=== PATIENT | male | born 1980 | race Caucasian/White ===

== ENCOUNTER 2023-08-13 00:35 | Emergency (ER) | payer OTHER, SELFPAY ==
[2023-08-13 00:35] VITALS: BMI 28.6
[2023-08-13 00:39] VITALS: BP 125/93
[2023-08-13 00:41] VITALS: BP 125/93
--- NOTE | 2023-08-13 01:46 | ED.GENMED ---
History of Present Illness
General
Chief Complaint: Chest Pain
Source: patient and ambulance crew
Time Seen by Provider: 08/13/23 00:37
Travel History
Have you had any contact with someone who has COVID-19?: No
Do you have any symptoms of coronavirus? Fever > 100 degrees, chills, cough, shortness of breath, sore throat, loss of taste or smell, muscle aches, or headache?: No
History of Present Illness
History of Present Illness:
42-year-old male who presents [place] Patient states he was hiking and fell asleep in the car. He states he has a PCP appointment tomorrow at 4 PM. He has been having difficulties with his job.
Patient states he has been a little bit depressed due to the of his grandmother. Occasionally he does have thoughts of suicide but nothing active now. The patient had reported a little bit of chest pain so EMS brought him for evaluation.
The patient currently denies chest pain. He states he had a brief twinge in the left lateral portion of his chest. It has resolved. No shortness of breath. No leg swelling
Past History
Past History
ED Past Medical History: Asthma, GERD, Psychiatric (depression, alcohol abuse, Anxiety) and Other (Bronchitis, MRSA of the knee's, Concussion, Hernia)
ED Past Surgical History: None
Patient has exhibited threatening behavior?: No (Patient was found to have a knife on his person. He did not use it or threatened to use it)
Social History
Tobacco: Smoker
Alcohol: Occasional
Drug: None
Personal:
Living: homeless
Employment: Employed
Phy Exam
Physical Exam
Physical Exam:
CONSTITUTIONAL Patient alert and oriented to person, place and time. Well-appearing. Vital signs reviewed.
HEAD atraumatic, normocephalic.
EYES eyelids normal to inspection, Extraocular muscles intact, Conjunctiva normal, Sclera normal.
NECK normal range of motion, Trachea midline, no jugular venous distention.
RESPIRATORY CHEST No respiratory distress noted, Chest expansion equal, Bilateral breath sounds clear.
CARDIOVASCULAR regular rate and rhythm, Heart sounds normal.
ABDOMEN abdomen nontender, Bowel sounds normal. No distention.
BACK normal inspection, no obvious deformities
UPPER EXTREMITY range of motion normal, Motor strength normal, no cyanosis, no edema.
LOWER EXTREMITY range of motion normal, Motor strength normal, no cyanosis, no edema.
NEURO Speech normal, No focal motor deficits, Arnaldo coma scale 15, Memory normal, Cranial Nerves intact to screening exam.
SKIN skin warm, dry, and normal in color.
PSYCHIATRIC patient oriented to person place and time, Normal affect.
Scores
Heart Score for Chest Pain Patients
STEMI patient?: Not applicable
Course
Orders/Labs/Results
Orders:
Orders
08/13/23 00:41
Electrocardiogram (*1) Urgent
Reason for Study: Chest Pain
EKG- Treatment ONCE
08/13/23 00:58
Crisis Consult Urgent
Reason for Consult: depression
08/13/23 00:41
08/13/23 00:41
Vital Signs
Initial and Last Documented VS:
Initial Vital Signs
Temp Pulse Resp BP Pulse Ox
97.3 F 83 22 125/93 99
08/13/23 00:39 08/13/23 00:39 08/13/23 00:39 08/13/23 00:39 08/13/23 00:39
Last Documented Vital Signs
Temp Pulse Resp BP Pulse Ox
97.3 F 85 16 125/93 98
08/13/23 00:39 08/13/23 01:30 08/13/23 01:30 08/13/23 00:41 08/13/23 00:45
MDM/Problems Addressed
MDM/Problems Addressed:
Major depression
*Pulse Oximetry
Patient hypoxic: no
*EKG
Interpreted by ED Provider?: Yes
Interpretation: normal
Rate: normal
Rhythm: sinus
[place]: normal axis
QRS Pattern: normal QRS
Ischemia: no ischemia
*Client Representative Interpretation
Rate: normal
Interpretation: normal
Rhythm: sinus
*Critical Care Note
Total Time (30-74mins, 75-104mins- exclusive of procedures): Not Applicable
Data Reviewed
Source: patient and family
Further Testing Considered But Not Given:
Consider checking troponin but patient reports she had 1 to 2 seconds of localized sharp pain that is atypical for ACS. EKG normal. No significant ACS risk factors
Patient Management
Escalation/DeEscalation of care consider admission/obs:
Patient peers well. Seen by crisis. Patient is not actively suicidal. He has a PCP appointment tomorrow that he would like to get to. As an outpatient psychiatrist as well as therapist. He feels comfortable returning if any symptoms of suicidal
ideation return or progress.
ED Attending Note
-
Portions of this chart may have been created with voice recognition software.� Occasional wrong word or��sound alike� substitutions may have occurred due to the inherent limitations of voice recognition software.
Discharge Plan
Departure
Patient Disposition: Home (Routine Discharge)
Date of Disposition: 08/13/23
Time of Disposition: 01:50
Patient with high blood pressure during this ER visit?: Yes
Discharge Problem:
Depression
Instructions: BLOOD PRESSURE
Prescriptions:
No Action
No Current Medications
0
Activity Restrictions/Additional Instructions:
Please see your doctor tomorrow as planned. Return immediately for suicidal ideation, chest pain, shortness of breath, weakness of any kind or any other concerns.
Interventions
Interventions:
*Risk Screen - Suicide Last Done: 08/13/23 01:09
*General Assessment Last Done: 08/13/23 00:48
*Neglect/Abuse Screening Last Done: 08/13/23 00:39
ED- Fall Risk Assessment Last Done: 08/13/23 01:14
*ED COVID-19 Vaccine History Last Done: 08/13/23 00:39
ED- Cardiac Assessment Last Done: 08/13/23 01:12
Discharge Date and Time
Print Language: [place]
[2023-08-13 03:00] VITALS: BP 120/87
== END 2023-08-13 03:17 | disposition home or self-care (01) ==
LOC: EMR 00:35
PROVIDERS: EMERGENCY PHYSICIAN Emergency Medicine; FAMILY PHYSICIAN Family Medicine
DX: F32.9 Major depressive disorder, single episode, unspecified (principal); J45.909 Unspecified asthma, uncomplicated; K21.9 Gastro-esophageal reflux disease without esophagitis; F17.200 Nicotine dependence, unspecified, uncomplicated
CPT/HCPCS: 99283; 93005

== ENCOUNTER 2023-10-07 21:34 | Emergency (ER) | payer SELFPAY ==
[2023-10-07 21:36] VITALS: BP 133/68
[2023-10-07 21:53] LABS: % Basophils 0.4 % (0-2); % Eosinophils 2.3 % (0-6); % Immature Granulocytes 0.3 % (0-0.5); Absolute Eosinophils 0.2 10^3/uL (0-0.7); Absolute Lymphocytes 2.7 10^3/uL (1.2-3.4); Absolute Monocytes 0.8 10^3/uL (0.1-0.6); Absolute Neutrophils 5.2 10^3/uL (1.4-6.5); Hematocrit 32.6 % (39.0-52.0); Hemoglobin 11.7 g/dL (13.0-18.0); Mean Corp Hgb Conc. 35.9 g/dL (33.0-37.0); Mean Corpuscular Hgb 31.1 pg (27.0-31.0); Mean Corpuscular Volume 86.7 fL (80.0-94.0); Mean Platelet Volume 11.4 fL (7.4-10.4); Nucleated Red Blood Cells % 0 % (-); Platelet Count 251 10^3/uL (130-400); Red Blood Cell Count 3.76 10^6/uL (4.70-6.10); Red Cell Dist. Width 12.1 % (11.5-14.5)
[2023-10-07 22:14] LABS: ALT (SGPT) 40 U/L (0-50); AST (SGOT) 38 U/L (17-59); Albumin 4.2 g/dl (3.5-5.0); Alkaline Phosphatase 54 U/L (38-126); Blood Urea Nitrogen 9 mg/dl (9-20); Carbon Dioxide 24 mmol/L (22-30); Chloride 106 mmol/L (98-107); Glucose 101 mg/dl (70-99); Potassium 3.5 mmol/L (3.5-5.1); Sodium 139 mmol/L (135-145); Total Bilirubin 0.3 mg/dl (0.2-1.3); Total Protein 6.6 g/dl (6.3-8.2); eGFR > 60.00
[2023-10-07 22:17] VITALS: BMI 29.8
[2023-10-07 22:18] LABS: Troponin I < 0.012 ng/ml
[2023-10-07 22:21] VITALS: BP 112/63
--- NOTE | 2023-10-07 22:38 | ED.GENMED ---
History of Present Illness
<KERVIN Brown - Last Filed: 10/08/23 03:49>
General
Chief Complaint: Chest Pain
Source: patient
Exam Limitations: none
Time Seen by Provider: 10/07/23 22:38
Nursing documentation reviewed up to this point in time: agreed with
History of Present Illness
History of Present Illness:
42 year old male presents for evaluation of chest pain. Pt notes that at approximately 1600 this afternoon he began experiencing chest pain which last for 5 hours per pt. Pain was not worsened by exercise, and was not pleuritic per pt. Pt did not
take any medications for his sx. He has a history of similar symptoms and notes his chest pain occurs regularly. Currently pt denies chest pain but endorses a burning sensation in his throat. He does have a history of GERD for which he takes
omeprazole. Pt denies injury/trauma to his chest, N/V, SOB, changes in bowel habits, palpitations, dizziness, diaphoresis, LAN, and vision changes. No tobacco, ETOH, or illicit drug use reported. No personal or family history of CAD.
Of note, pt exhibited a blunted affect and was hesitant to elaborate on his symptoms during assessment.
Past History
<KERVIN Brown - Last Filed: 10/08/23 03:49>
Past History
ED Past Medical History: Asthma, GERD, Psychiatric (depression, alcohol abuse, Anxiety) and Other (Bronchitis, MRSA of the knee's, Concussion, Hernia)
ED Past Surgical History: None
Patient has exhibited threatening behavior?: No (Patient was found to have a knife on his person. He did not use it or threatened to use it)
Social History
Tobacco: Smoker
Alcohol: Occasional
Drug: None
Personal:
Living: homeless
Employment: Employed
Review of Systems
<KERVIN Brown - Last Filed: 10/08/23 03:49>
Review of Systems
Allergies reviewed?: Yes
Constitutional: Reports no symptoms
EENT: Reports no symptoms
Respiratory: Reports no symptoms
Cardiac: Reports no symptoms
ABD/GI: Reports other (burning sensation in his throat )
: Reports no symptoms
Musculoskeletal: Reports no symptoms
Skin: Reports no symptoms
Neurological: Reports no symptoms
Endocrine: Reports no symptoms
Hematologic/Lymphatic: Reports no symptoms
Psychiatric: Reports no symptoms
Phy Exam
<KERVIN Brown - Last Filed: 10/08/23 03:49>
General Physical Exam
General Presentation: well appearing
General age: appears stated age
General Skin: warm
General Habitus: normal
General Mental: alert
General Hydration: appears well hydrated
Cardiovascular Exam
Cardiovascular Exam: regular rate/rhythm, no edema, no JVD and no murmur
Pulmonary Exam
Pulmonary Exam: lungs clear and no respiratory distress
Psychiatric Exam
Psychiatric Exam: depressed and other (blunted affect)
Scores
<KERVIN Brown - Last Filed: 10/08/23 03:49>
Heart Score for Chest Pain Patients
Heart Score for Chest Pain Patients: 0
Heart Score Risk: 2.5% MACE over next 6 weeks
<Pippa Avelar DO - Last Filed: 10/07/23 23:26>
Heart Score for Chest Pain Patients
STEMI patient?: No
History: Slightly or Non-Suspicious
ECG: Normal
Age: </= 45 years
Risk Factors: No Risk Factors
Troponin: </= Normal Limit
Heart Score for Chest Pain Patients: 0
Heart Score Risk: 2.5% MACE over next 6 weeks
Course
<KERVIN Brown - Last Filed: 10/08/23 03:49>
Orders/Labs/Results
Orders:
Orders
10/07/23 21:38
Electrocardiogram (*1) Urgent
Reason for Study: Chest Pain
EKG- Treatment ONCE
10/07/23 21:46
Complete Blood Count/With Diff Urgent
Comprehensive Metabolic Panel Urgent
Troponin I Urgent
10/07/23 23:14
Pantoprazole [Protonix] 40 mg PO NOW STA
Abnormal Lab Results
10/07/23
21:46
RBC 3.76 L 10^6/uL
(4.70-6.10)
Hgb 11.7 L g/dL
(13.0-18.0)
Hct 32.6 L %
(39.0-52.0)
MCH 31.1 H pg
(27.0-31.0)
MPV 11.4 H fL
(7.4-10.4)
Absolute Monos (auto) 0.8 H 10^3/uL
(0.1-0.6)
Glucose 101 H mg/dl
(70-99)
10/07/23 21:46
10/07/23 21:46
Vital Signs
Initial and Last Documented VS:
Initial Vital Signs
Temp Pulse Resp BP Pulse Ox
98.3 F 91 20 133/68 98
10/07/23 21:36 10/07/23 21:36 10/07/23 21:36 10/07/23 21:36 10/07/23 21:36
Last Documented Vital Signs
Temp Pulse Resp BP Pulse Ox
98.3 F 79 21 100/60 95
10/07/23 21:36 10/07/23 23:15 10/07/23 23:15 10/07/23 23:25 10/07/23 23:15
<Pippa Avelar DO - Last Filed: 10/07/23 23:26>
Orders/Labs/Results
Orders:
Orders
10/07/23 21:38
Electrocardiogram (*1) Urgent
Reason for Study: Chest Pain
EKG- Treatment ONCE
10/07/23 21:46
Complete Blood Count/With Diff Urgent
Comprehensive Metabolic Panel Urgent
Troponin I Urgent
10/07/23 23:14
Pantoprazole [Protonix] 40 mg PO NOW STA
Abnormal Lab Results
10/07/23
21:46
RBC 3.76 L 10^6/uL
(4.70-6.10)
Hgb 11.7 L g/dL
(13.0-18.0)
Hct 32.6 L %
(39.0-52.0)
MCH 31.1 H pg
(27.0-31.0)
MPV 11.4 H fL
(7.4-10.4)
Absolute Monos (auto) 0.8 H 10^3/uL
(0.1-0.6)
Glucose 101 H mg/dl
(70-99)
10/07/23 21:46
10/07/23 21:46
Vital Signs
Initial and Last Documented VS:
Initial Vital Signs
Temp Pulse Resp BP Pulse Ox
98.3 F 91 20 133/68 98
10/07/23 21:36 10/07/23 21:36 10/07/23 21:36 10/07/23 21:36 10/07/23 21:36
Last Documented Vital Signs
Temp Pulse Resp BP Pulse Ox
98.3 F 79 21 100/60 95
10/07/23 21:36 10/07/23 23:15 10/07/23 23:15 10/07/23 23:25 10/07/23 23:15
marta;KERVIN Brown - Last Filed: 10/08/23 03:49>
MDM/Problems Addressed
Differential Diagnosis Includes:
GERD
MDM/Problems Addressed:
Pantoprazole [Protonix] 40 mg PO
<KERVIN Brown - Last Filed: 10/08/23 03:49>
*Critical Care Note
Total Time (30-74mins, 75-104mins- exclusive of procedures): Not Applicable
<Pippa Avelar DO - Last Filed: 10/07/23 23:26>
*Pulse Oximetry
Patient hypoxic: no
*EKG
Interpreted by ED Provider?: Yes
Interpretation: normal
Comparison EKG: no changes (Unchanged from previous July 2023)
Rate: normal
Rhythm: sinus
[place]: normal axis
Interval: normal interval
QRS Pattern: normal QRS
Ischemia: no ischemia
*[employer] Interpretation
Rate: normal
Interpretation: normal
Rhythm: sinus
*Critical Care Note
Total Time (30-74mins, 75-104mins- exclusive of procedures): Not Applicable
ED Attending Note
<KERVIN Brown - Last Filed: 10/08/23 03:49>
-
Portions of this chart may have been created with voice recognition software.� Occasional wrong word or��sound alike� substitutions may have occurred due to the inherent limitations of voice recognition software.
<Pippa Avelar DO - Last Filed: 10/07/23 23:26>
ED Attending Note
Patient seen and examined by attending physician: Yes
I performed a history and physical exam of patient and discussed management with resident, I reviewed resident's note and agree with documented findings and plan of care.: Yes
ED Attending Note:
This is a 42-year-old gentleman who has history of mild intermittent asthma, history of GERD, depression/anxiety who had, at 1 point been maintained on omeprazole and bupropion. Currently takes no medications.
He presents with complaints of generalized anterior chest pain that began this afternoon, persistent for approximately 5 to 6 hours. No associated symptoms and currently chest pain-free.
He does admit to near daily similar episodes of chest pain and has been evaluated in this ED on several occasions for similar complaints of chest pain, most recently July of this year as well as May 2022. Unremarkable ED evaluations at that time.
No prior history of CAD nor family history of such.
No recent travel, he denies leg pain or swelling. He denies cough nor shortness of breath, denies palpitations. Sometimes chest pain is worse after meals. Other than this no definitive aggravating or relieving factors.
He has had no nausea or vomiting, no diarrhea or constipation. He denies black or tarry stools. No change in weight.
Prior records note sporadic homelessness but patient states he currently resides in [place], he does have healthcare coverage and has a primary care physician, Dr. Matthew Stovall.
GENERAL: 42-year-old gentleman appears his stated age, sleeping upon initially entering exam room, easily awakens. Once awake he is bright and alert, exhibits a moderately blunted/flat affect otherwise in no distress and easily communicative.
EYE: anicteric
NECK: Supple, nontender, no meningismus, no significant adenopathy.
ENT: oral mucosa is moist. TM clear b/l, nares patent.
CARDIAC: Regular rate and rhythm. no murmur. No palpable chest wall tenderness.
LUNGS: Clear breath sounds bilaterally, no acute respiratory distress, no wheezes/rales/rhonchi
ABDOMEN: Rotund, soft, nondistended, without focal tenderness, no r/g, no cvat. normoactive BS.
NEUROLOGICAL: Alert and oriented x3, no focal neuro deficits.
SKIN: Warm and dry, normal color, skin intact. No rash.
MUSCULOSKELETAL: No C/C/E. peripheral pulses are full and equal b/l. No palpable tenderness.
PSYCH: Moderately blunted affect. Cooperative. Normal thought processes. Currently denies feelings of depression nor thoughts of suicide.
Patient presents with somewhat chronic near daily chest pain. Similar complaints on prior ED visits with unremarkable evaluation.
No history of CAD nor prior history of thromboembolism nor family history of such.
EKG is unremarkable and unchanged from previous.
Labs are unremarkable save for very mild anemia with hemoglobin of 11.7. H&H have trended down since 2021, 12.8 hemoglobin May 2022, 11.7 today. Normocytic indices. Patient denies abdominal pain, denies black or tarry stools. This could
certainly be delusional in nature but recommend follow-up with PCP for further evaluation.
Troponin is negative. Chemistries are unremarkable.
As he has had no abdominal pain, denies episodes of severe abdominal pain, biliary colic is less likely as well.
I do suspect an element of GERD and he had been maintained on a PPI in the past.
Recommend we resume a daily PPI with recommendations for prompt follow-up with PCP for recheck.
Return precautions discussed.
Discharge Plan
Departure
Patient Disposition: Home (Routine Discharge)
Date of Disposition: 10/07/23
Time of Disposition: 23:15
Patient with high blood pressure during this ER visit?: No
Condition: Good
Discharge Problem:
Chronic chest pain, GERD (gastroesophageal reflux disease), MILD NORMOCYTIC ANEMIA
Instructions: Acid reflux and GERD in adults, Chest Pain PCP Follow Up
Prescriptions:
New
pantoprazole [Protonix] 40 mg tablet,delayed release (DR/EC)
40 mg PO DAILY Qty: 90 0RF
Referrals:
Zafar Blankenship MD [Active] - Call in 1-3 days for appt
UNKNOWN - PT DOES,NOT KNOW [Family Provider] -
Interventions
Interventions:
*Risk Screen - Suicide Last Done: 10/07/23 21:36
*General Assessment Last Done: 10/07/23 21:36
*Neglect/Abuse Screening Last Done: 10/07/23 21:36
ED- Fall Risk Assessment Last Done: 10/07/23 22:17
*ED COVID-19 Vaccine History Last Done: 10/07/23 22:21
*Nursing Disposition Last Done: 10/07/23 23:35
ED- Cardiac Assessment Last Done: 10/07/23 22:17
Discharge Date and Time
Discharge Date/Time: 10/07/23 23:36
Print Language: [place] R[place]
[2023-10-07] MEDS: PROTONIX 40 MG PO (23:22)
[2023-10-07 23:25] VITALS: BP 100/60
== END 2023-10-07 23:36 | disposition home or self-care (01) ==
LOC: EMR 21:34
PROVIDERS: Student in an Organized Health Care Education/Training Program; EMERGENCY PHYSICIAN Emergency Medicine
DX: R07.89 Other chest pain (principal); D64.9 Anemia, unspecified; K21.9 Gastro-esophageal reflux disease without esophagitis; J45.20 Mild intermittent asthma, uncomplicated; F32.A Depression, unspecified; F41.9 Anxiety disorder, unspecified; F17.200 Nicotine dependence, unspecified, uncomplicated
CPT/HCPCS: 99284; 80053; 84484; 85025; 93005

== ENCOUNTER 2023-10-19 00:49 | Emergency (ER) | payer SELFPAY ==
[2023-10-19 00:57] VITALS: BP 141/93
[2023-10-19 01:23] VITALS: BP 128/82
[2023-10-19 01:24] VITALS: BMI 29.7
--- NOTE | 2023-10-19 01:40 | ED.GENMED ---
History of Present Illness
General
Chief Complaint: Back Pain
Source: patient and previous hospital records (ED visit October 06 as well as August 12 of this year with complaints of intermittent, daily chest pain. On both occasions noted to be homeless. Unremarkable ED evaluations on both episodes)
Exam Limitations: other (Poorly cooperative with history. Evasive and altering.)
Time Seen by Provider: 10/19/23 01:20
Nursing documentation reviewed up to this point in time: agreed with except
History of Present Illness
History of Present Illness:
This is a 42-year-old gentleman who has history of sporadic homelessness, has been homeless over the past several months, had been residing in a local motel/hotel and at this point unclear if he is currently residing in the hotel versus left the
hotel 3 days ago. He has walked into the ED initially with complaints of low back pain but now denies lower back pain and is more concerned with some left posterior ankle pain.
He does admit to moderate daily walking and has been climbing rocks approximately a week ago. No fall nor injury.
He is unsure how he is arrived to the ED. Initially stating he recently purchased a new van but now unsure if he was dropped off to the emergency department.
He adamantly denies alcohol nor drug use but does admit to topical CBD preparations for various joint aches.
Evaluated in this ED October 06, just a week and a half ago with complaints of intermittent but near daily chest pain. Similar sporadic chest pain noted during ED visit August 12. At that time patient was found sleeping in his car in a park, awoken by
[employer] and after being awoken had complained of some sporadic chest pain was brought to the ED in July for further evaluation. On both occasions unremarkable ED evaluation. Was evaluated by crisis during that july have visited a due to
complaints of depression, stress, financial issues. Deemed stable for discharge to home.
During ED visit October 06, unremarkable ED evaluation including laboratory studies, EKG. Prescribed Protonix for suspected GERD as cause for intermittent chest pain.
At this point unclear if he has been taking the Protonix.
He takes no other medicines on a daily basis.
Past History
Past History
ED Past Medical History: Asthma, GERD, Psychiatric (depression, alcohol abuse, Anxiety) and Other (Bronchitis, MRSA of the knee's, Concussion, Hernia)
ED Past Surgical History: None
Patient has exhibited threatening behavior?: No (Patient was found to have a knife on his person. He did not use it or threatened to use it)
Social History
Tobacco: Smoker
Alcohol: None
Drug: None
Personal:
Living: homeless
Employment: Employed
Family History
Family History: Unable to obtain
Phy Exam
Physical Exam
Physical Exam:
GENERAL: 42-year-old male appears his stated age, awake and alert, mildly disheveled and unkempt. Arrives with a large book bag and other belongings. Poorly cooperative with history and unsure exactly how he got to the ED and unsure exactly why he
has presented to the ED.
EYE: pupils equal and round. Anicteric
NECK: Supple, nontender, no meningismus, no significant adenopathy.
ENT: posterior pharynx is clear, oral mucosa is moist. No rhinorrhea.
CARDIAC: Regular rate and rhythm. no murmur.
LUNGS: Clear breath sounds bilaterally, no acute respiratory distress, no wheezes/rales/rhonchi
ABDOMEN: Soft, nondistended, without focal tenderness, no r/g, no cvat. normoactive BS.
BACK: No midline bony tenderness. Patient sits up with ease and without difficulty. Straight leg raising is negative bilaterally.
NEUROLOGICAL: Alert and oriented x3, no focal neuro deficits. Motor strength is 5/5 bilaterally. Gross sensation is intact. Mildly unsteady on feet but no fall.
SKIN: Warm and dry, normal color, few scattered linear excoriations bilateral anterior lower legs.
MUSCULOSKELETAL: No C/C/E. peripheral pulses are full and equal b/l. No palpable tenderness. Full range of motion without difficulty nor pain.
PSYCH: Moderately blunted affect. Poorly cooperative with history of present illness. Evasive and frequently altering his history. Currently homeless. Residing in a hotel versus his automobile. Adamantly denies suicidal thoughts or plan.
Denies drug or alcohol use.
Course
Orders/Labs/Results
Orders:
Orders
10/19/23 01:40
Acetaminophen [Tylenol] 1,000 mg PO NOW STA
Vital Signs
Initial and Last Documented VS:
Initial Vital Signs
Temp Pulse Resp BP Pulse Ox
98.3 F 99 16 141/93 99
10/19/23 00:57 10/19/23 00:57 10/19/23 00:57 10/19/23 00:57 10/19/23 00:57
Last Documented Vital Signs
Temp Pulse Resp BP Pulse Ox
98.3 F 99 16 128/82 98
10/19/23 00:57 10/19/23 00:57 10/19/23 00:57 10/19/23 01:23 10/19/23 01:24
MDM/Problems Addressed
Differential Diagnosis Includes:
At this point unclear as to why the patient has presented to the ED. Varying and altering complaints but somewhat more persistent with complaints of left posterior ankle pain of unclear duration but exam is overall benign, no palpable ankle nor
foot tenderness, full active range of motion of the ankle without difficulty nor pain.
There is no soft tissue swelling or joint effusion, no erythema. No indication for laboratory studies nor x-rays.
Patient does admit to significant, daily walking but denies falls nor overt injury.
He has been offered ibuprofen which he declines but agreeable to a dose of Tylenol.
Recommend supportive measures, rest, continue Tylenol.
Recommend follow-up with PCP for recheck. Patient does have a primary care physician, Dr. Stovall.
Chronic conditions affecting care: Psychiatric illness and Other (Homelessness)
Acute Exacerbation and/or Progression of Chronic Illness: Other (Homelessness)
*Pulse Oximetry
Patient hypoxic: no
*Critical Care Note
Total Time (30-74mins, 75-104mins- exclusive of procedures): Not Applicable
ED Attending Note
-
Portions of this chart may have been created with voice recognition software.� Occasional wrong word or��sound alike� substitutions may have occurred due to the inherent limitations of voice recognition software.
Discharge Plan
Departure
Patient Disposition: Home (Routine Discharge)
Date of Disposition: 10/19/23
Time of Disposition: 01:40
Patient with high blood pressure during this ER visit?: Yes
Condition: Fair
Discharge Problem:
Repetitive strain injury of left ankle, Homelessness
Instructions: Achilles Tendinopathy Exercises, BLOOD PRESSURE
Prescriptions:
No Action
pantoprazole [Protonix] 40 mg tablet,delayed release (DR/EC)
40 mg PO DAILY Qty: 90 0RF
Referrals:
Zafar Blankenship MD [Active] - Call in 1-3 days for appt
Interventions
Interventions:
*Risk Screen - Suicide Last Done: 10/19/23 01:40
*General Assessment Last Done: 10/19/23 01:40
*Neglect/Abuse Screening Last Done: 10/19/23 01:40
ED- Fall Risk Assessment Last Done: 10/19/23 01:40
*ED COVID-19 Vaccine History Last Done: 10/19/23 01:40
*Nursing Disposition Last Done: 10/19/23 01:59
ED-Musculoskeletal Assessment Last Done: 10/19/23 01:53
Discharge Date and Time
Discharge Date/Time: 10/19/23 02:02
Print Language: MALAY
[2023-10-19] MEDS: TYLENOL 1000 MG PO (01:44)
== END 2023-10-19 02:02 | disposition home or self-care (01) ==
LOC: EMR 00:49
PROVIDERS: EMERGENCY PHYSICIAN Emergency Medicine
DX: S99.912A Unspecified injury of left ankle, initial encounter (principal); X58.XXXA Exposure to other specified factors, initial encounter; Z59.00 Homelessness unspecified; J45.909 Unspecified asthma, uncomplicated; K21.9 Gastro-esophageal reflux disease without esophagitis; F41.8 Other specified anxiety disorders; F10.10 Alcohol abuse, uncomplicated; F17.200 Nicotine dependence, unspecified, uncomplicated; Z86.14 Personal history of Methicillin resistant Staphylococcus aureus infection
CPT/HCPCS: 99282

== ENCOUNTER 2023-10-21 17:49 | Emergency (ER) | payer SELFPAY ==
[2023-10-21 17:50] VITALS: BP 128/98; BMI 28.9
--- NOTE | 2023-10-21 18:21 | EDRN ---
Pt not found in waiting area. LWOT.
--- NOTE | 2023-10-21 18:22 | EDRN ---
called, no voice mail box set up.
[2023-10-21 18:26] LABS: Hematocrit 39.3 % (39.0-52.0); Mean Corp Hgb Conc. 35.6 g/dL (33.0-37.0); Mean Corpuscular Hgb 31.1 pg (27.0-31.0); Mean Corpuscular Volume 87.3 fL (80.0-94.0); Mean Platelet Volume 11.4 fL (7.4-10.4); Platelet Count 251 10^3/uL (130-400); Red Cell Dist. Width 12.5 % (11.5-14.5); White Blood Cell Count 9.4 10^3/uL (4.8-10.8)
[2023-10-21 18:28] LABS: ALT (SGPT) 31 U/L (0-50); AST (SGOT) 30 U/L (17-59); Albumin 4.8 g/dl (3.5-5.0); Alkaline Phosphatase 53 U/L (38-126); Blood Urea Nitrogen 14 mg/dl (9-20); Calcium 9.6 mg/dl (8.4-10.2); Carbon Dioxide 22 mmol/L (22-30); Chloride 104 mmol/L (98-107); Estimated Creatinine Clearance > 125 ml/min; Glucose 116 mg/dl (70-99); Potassium 4.6 mmol/L (3.5-5.1); Sodium 136 mmol/L (135-145); Total Bilirubin 0.6 mg/dl (0.2-1.3); Total Protein 7.5 g/dl (6.3-8.2); eGFR > 60.00
[2023-10-21 18:29] LABS: Alcohol None Detected
[2023-10-21 18:36] LABS: % Basophils 0.6 % (0-2); % Eosinophils 2.5 % (0-6); % Immature Granulocytes 0.1 % (0-0.5); % Lymphocytes 27.3 % (20.5-51.1); % Monocytes 7.3 % (1.7-9.3); % Neutrophils 62.2 % (42.2-75.2); Absolute Basophils 0.1 10^3/uL (0-0.2); Absolute Eosinophils 0.2 10^3/uL (0-0.7); Absolute Lymphocytes 2.6 10^3/uL (1.2-3.4); Absolute Monocytes 0.7 10^3/uL (0.1-0.6); Absolute Neutrophils 5.8 10^3/uL (1.4-6.5); Nucleated Red Blood Cells % 0 % (-); Troponin I < 0.012 ng/ml
== END 2023-10-21 18:22 | disposition left against medical advice (07) ==
LOC: EMR 17:49
PROVIDERS: EMERGENCY PHYSICIAN Student in an Organized Health Care Education/Training Program
DX: F91.9 Conduct disorder, unspecified (principal); R47.1 Dysarthria and anarthria; Z53.29 Procedure and treatment not carried out because of patient's decision for other reasons
CPT/HCPCS: 80053; 82077; 84484; 85025; 93005

== ENCOUNTER 2023-10-22 19:56 | Emergency (ER) | payer SELFPAY ==
[2023-10-22 20:01] VITALS: BP 132/89; BMI 29.1
[2023-10-22 20:03] VITALS: BP 132/89
[2023-10-22 20:49] LABS: % Basophils 0.4 % (0-2); % Immature Granulocytes 0.2 % (0-0.5); % Lymphocytes 26.2 % (20.5-51.1); % Monocytes 6.3 % (1.7-9.3); % Neutrophils 64.9 % (42.2-75.2); Absolute Eosinophils 0.2 10^3/uL (0-0.7); Absolute Lymphocytes 2.1 10^3/uL (1.2-3.4); Absolute Monocytes 0.5 10^3/uL (0.1-0.6); Absolute Neutrophils 5.3 10^3/uL (1.4-6.5); Hemoglobin 13.2 g/dL (13.0-18.0); Mean Corp Hgb Conc. 35.7 g/dL (33.0-37.0); Mean Corpuscular Hgb 31.4 pg (27.0-31.0); Mean Corpuscular Volume 87.9 fL (80.0-94.0); Mean Platelet Volume 11.9 fL (7.4-10.4); Nucleated Red Blood Cells % 0 % (-); Platelet Count 248 10^3/uL (130-400); Red Blood Cell Count 4.21 10^6/uL (4.70-6.10); Red Cell Dist. Width 12.5 % (11.5-14.5); White Blood Cell Count 8.1 10^3/uL (4.8-10.8)
--- NOTE | 2023-10-22 21:03 | ED.GENMED ---
History of Present Illness
General
Chief Complaint: Change in Mental Status
Source: patient
Exam Limitations: none
Time Seen by Provider: 10/22/23 19:58
Nursing documentation reviewed up to this point in time: agreed with
History of Present Illness
History of Present Illness:
Patient presents to ED for evaluation after he was found to be wandering the streets, confused, by bystanders. Per patient, he was approached by police officers with suspicion for 'selling drugs'. Patient upon arrival, has no complaints. Patient
states that he lives at home by himself. Denies use of any illicit medications. Denies recent illness.
Past History
Past History
ED Past Medical History: Asthma, GERD, Psychiatric (depression, alcohol abuse, Anxiety) and Other (Bronchitis, MRSA of the knee's, Concussion, Hernia)
ED Past Surgical History: None
Patient has exhibited threatening behavior?: No (Patient was found to have a knife on his person. He did not use it or threatened to use it)
Social History
Tobacco: Smoker
Alcohol: None
Drug: None
Personal:
Living: homeless
Employment: Employed
Family History
Family History: Unable to obtain
Review of Systems
Review of Systems
Allergies reviewed?: Yes
All Other Systems: ROS reviewed and negative except as documented in HPI and ROS
Constitutional: Reports no symptoms
Respiratory: Reports no symptoms
Cardiac: Reports no symptoms
ABD/GI: Reports no symptoms
Musculoskeletal: Reports no symptoms
Skin: Reports no symptoms
Neurological: Reports no symptoms
Phy Exam
Physical Exam
Physical Exam:
Physical Exam
General: no apparent distress, not acutely ill. afebrile
Head: nc/at. eomi
Neck: supple. normal range of motion.
Heart: s1/s2 regular rate and rhythm, no murmur. equal radial pulses.
Lungs: no acute respiratory distress. clear bilaterally
Abdomen: normal bowel sounds. not tender.
Neuro: alert and oriented x 3. no focal neurological deficits
Skin: no rash
Psychiatric: well kept. interactive and cooperative
Extremities: no edema. no calf tenderness.
Course
Orders/Labs/Results
Orders:
Orders
10/22/23 20:00
EKG [Electrocardiogram (*1)] Urgent
Reason for Study: Fatigue / Weakness
EKG- Treatment ONCE
10/22/23 20:44
CBC/With Diff [Complete Blood Count/With Diff] Urgent
CMP [Comprehensive Metabolic Panel] Urgent
Abnormal Lab Results
10/22/23
20:44
RBC 4.21 L 10^6/uL
(4.70-6.10)
Hct 37.0 L %
(39.0-52.0)
MCH 31.4 H pg
(27.0-31.0)
MPV 11.9 H fL
(7.4-10.4)
Chloride 108 H mmol/L
(98-107)
Glucose 107 H mg/dl
(70-99)
10/22/23 20:44
10/22/23 20:44
Vital Signs
Initial and Last Documented VS:
Initial Vital Signs
Temp Pulse Resp BP Pulse Ox
97.6 F 92 17 132/89 96
10/22/23 20:01 10/22/23 20:01 10/22/23 20:01 10/22/23 20:01 10/22/23 20:01
Last Documented Vital Signs
Temp Pulse Resp BP Pulse Ox
97.6 F 90 21 132/89 98
10/22/23 20:01 10/22/23 20:45 10/22/23 20:45 10/22/23 20:03 10/22/23 20:45
MDM/Problems Addressed
MDM/Problems Addressed:
Patient remains alert, awake, and oriented, and hemodynamically stable observation ED. Patient reports hunger and requesting sandwich to eat. Otherwise, patient without any acute medical condition, requiring any further evaluation. However, this
will be patient's third visit to ED this month with vague complaints, with concern for patient being possibly homeless, which he denies at this time. As such, patient will be discharged from ED, with recommendation to follow-up with PCP with any
further concerns.
*Critical Care Note
Total Time (30-74mins, 75-104mins- exclusive of procedures): Not Applicable
ED Attending Note
-
Portions of this chart may have been created with voice recognition software.� Occasional wrong word or��sound alike� substitutions may have occurred due to the inherent limitations of voice recognition software.
Discharge Plan
Departure
Patient Disposition: Home (Routine Discharge)
Date of Disposition: 10/22/23
Time of Disposition: 21:06
Patient with high blood pressure during this ER visit?: Yes
Condition: Good
Discharge Problem:
Altered mental status
Instructions: Altered Mental Status (DC)
Prescriptions:
No Action
pantoprazole [Protonix] 40 mg tablet,delayed release (DR/EC)
40 mg PO DAILY Qty: 90 0RF
Referrals:
UNKNOWN - PT DOES,NOT KNOW [Family Provider] -
Activity Restrictions/Additional Instructions:
As discussed, please follow-up with your primary care physician with any further concerns.
Interventions
Interventions:
*Risk Screen - Suicide Last Done: 10/22/23 20:01
*General Assessment Last Done: 10/22/23 20:01
*Neglect/Abuse Screening Last Done: 10/22/23 20:01
ED- Fall Risk Assessment Last Done: 10/22/23 20:46
*Nursing Disposition Last Done: 10/22/23 21:12
ED- Neurological Assessment Last Done: 10/22/23 20:46
ED- Cardiac Assessment Last Done: 10/22/23 20:46
Discharge Date and Time
Discharge Date/Time: 10/22/23 21:29
Print Language: [id number]
[2023-10-22 21:16] LABS: ALT (SGPT) 31 U/L (0-50); AST (SGOT) 40 U/L (17-59); Albumin 4.6 g/dl (3.5-5.0); Alkaline Phosphatase 49 U/L (38-126); Blood Urea Nitrogen 12 mg/dl (9-20); Calcium 9.4 mg/dl (8.4-10.2); Carbon Dioxide 26 mmol/L (22-30); Chloride 108 mmol/L (98-107); Estimated Creatinine Clearance > 125 ml/min; Glucose 107 mg/dl (70-99); Potassium 4.7 mmol/L (3.5-5.1); Sodium 139 mmol/L (135-145); Total Bilirubin 0.4 mg/dl (0.2-1.3); eGFR > 60.00
== END 2023-10-22 21:29 | disposition home or self-care (01) ==
LOC: EMR 19:56
PROVIDERS: EMERGENCY PHYSICIAN Emergency Medicine
DX: R41.82 Altered mental status, unspecified (principal); R03.0 Elevated blood-pressure reading, without diagnosis of hypertension; K21.9 Gastro-esophageal reflux disease without esophagitis; J45.909 Unspecified asthma, uncomplicated; F32.A Depression, unspecified; F41.9 Anxiety disorder, unspecified; F10.11 Alcohol abuse, in remission; F17.200 Nicotine dependence, unspecified, uncomplicated; Z86.14 Personal history of Methicillin resistant Staphylococcus aureus infection; Z87.820 Personal history of traumatic brain injury; Z86.16 Personal history of COVID-19; Z88.8 Allergy status to other drugs, medicaments and biological substances
CPT/HCPCS: 99283; 80053; 85025; 93005